=== PATIENT | male | born 1955 | race Caucasian/White ===

== ENCOUNTER → 2024-12-12 | Outpatient (CLI) | payer MEDICARE ==
[2024-12-12 10:57] VITALS: BP 184/118; PULSE 95; RESP 17; TEMP 97.4
--- NOTE | 2024-12-12 15:30 | P.PAINPG ---
PQRS Measure Charge Sheet Comment: HISTORY OF PRESENT ILLNESS: A 68 yr old male as a referral from [facility] presents today w severe and chronic LBP > 2 yrs secondary to radiculopathy, spondylosis and facet arthropathy without myelopathy for evaluation. Pt states pain level is provoked at 7 /10 in intensity, constant, localized in the lumbar spine, predominantly axial, achy in character w occasional shooting pain towards the BL knees and toes. Pain is provoked by climbing stairs. Pain is alleviated by PT x 2 wks which provoked pain in mid Nov 2024, physician guided home stretches 4-5 times weekly since Nov 2024, heat, ice, medications, topical repositioning and rest . Oswestry axial pain score at 34. 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 Fa- CRF All: See list Meds: See list incl [place] 7.5/[address] Bynum, Kimi, Tyl, Diclofenac Gel REVIEW OF ORGAN SYSTEMS: CONSTITUTIONAL: No fevers or chills. No recent weight loss. NEUROLOGICAL: + numbness and tingling along the distal extremities. No seizure disorders or headaches. MUSCULOSKELETAL: + pain PSYCHIATRIC: Denies current depression or suicidal thoughts. Physical Examinations : Constitutional : Cooperative , not in acute distress . Neurologic : Cranial nerve II to XII intact. No focal neurological deficits. Psychiatric : alert & oriented x 3. Matching mood & appropriate affect. Judgment & insight intact. Musculoskeletal : Cervical Spine Motor strength in the deltoid and biceps: Normal right side. Normal Left side Motor strength biceps and the wrist extensors: Normal right side . Normal left side Motor strength in the triceps muscle: Normal right side. Normal left side Deep tendon reflexes: Normal at the biceps. Normal at Brachioradialis. Normal at triceps Vertebral body tenderness to deep palpation over Cervical facet loading test: positive bilaterally Spurling test: positive bilaterally Neck distraction test: positive bilaterally Doe sign: positive bilaterally Lumbar spine Motor strength lower extremities ,thigh and legs 5/5 Right side , 5/5 Left side Deep tendon reflexes : Normal Knee Jerk. Normal Ankle Jerk Vertebral body tenderness over L4 Sosa Test positive BL L4-L5 Lumbar facet Loading Test: positive R ight / positive Left Range of motion of the lumbar spine Flexion 30 degrees, extension 10 degrees Straight Leg Raise test: Left/ Right positive at degrees Anay test: positive right / positive left. Severe tenderness over the Sacroiliac joint on the Right / Left sides Gaenslen test: positive bilaterally Seated flexion test: positive bilaterally. Sacral spine : Severe tenderness over the Sacroiliac joint: right side / left side Range of motion: Flexion of the lumbar spine <60 degrees Range of motion: Extension of the lumbar spine <20 degrees Gaenslen's Test positive Anay test: positive right side / left side Thigh Thrust Test Sacral Thrust Test Imaging: MRI noncontrast of the lumbar spine from 10/24/2024 reviewed Assessment/ Plan : L4-L5 radiculopathy Recommendation of NATO L4-L5 #1. Risks, benefits of procedure discussed and patient verbalized understanding. Admits to anti- coagulant use or medical history of diabetes. Protocol for discontinuation/ continuation of medications blair procedure discussed. All questions answered. I have spent greater than 30 minutes on patient care today. Dr Dodd was available by phone for the evaluation of this patient. The time was used to review the medical records including relevant urine studies and Prescription history (MAPs), review of the available imaging, evaluation and examination of the patient, coordination of care with the medical staff and if applicable referring physicians, as well as creation of the medical record - Pain Location Lower Back Non-Pharmacological Interventions: Heat, Ice Pharmacological Interventions: Medication, Topical Medication PQRS Narrative: Smoking Status Former smoker Home Medications: Ambulatory Orders Aspirin EC [Ecotrin] 81 mg PO DAILY 08/23/14 Chlorthalidone 12.5 mg PO HS 08/23/14 FLUoxetine HCL [Fluoxetine HCl] 20 mg PO HS 08/23/14 HYDROcodone/APAP 7.5-325MG [[place] 7.5-325] 1 each PO DIRECTED PRN 08/23/14 Labetalol HCl [Trandate] 200 mg PO BID 08/23/14 Zolpidem [Ambien] 5 mg PO HS PRN 08/23/14 hydrALAZINE HCL [Apresoline] 100 mg PO BID 08/23/14 lisinopriL [Prinivil] 20 mg PO BID 08/23/14 diazePAM [Valium] 5 mg PO DAILY 1 Days #2 tab 12/12/24 Controlled Substance Measures - Controlled Substance Measures Is patient prescribed a controlled substance at discharge?: Yes When asked, does pt state using other controlled substances?: Yes If prescribed controlled substance>3 days was MAPS reviewed?: Prescribed <3 Days
== END ==
LOC: PNWHC3 10:16
PROVIDERS: ATTEND Specialist
DX: M54.16 Radiculopathy, lumbar region (principal); Z87.891 Personal history of nicotine dependence
CPT/HCPCS: 99212

== ENCOUNTER 2024-12-27 06:19 | Day surgery (SDC) | payer MEDICARE ==
[2024-12-25 14:24] VITALS: BMI 28.0
[2024-12-27] MEDS ORDERED: LACTATED RINGERS 1,000 ML IV SCH (06:43)
[2024-12-27 06:55] VITALS: TEMP 97.5
[2024-12-27 07:01] LABS: Glucose,Whole Blood 141 mg/dL (70-110)
[2024-12-27] MEDS ORDERED: methylPREDNISolone ACETATE 80 MG/ML 1 ML VIAL ONE (07:44)
[2024-12-27] MEDS ORDERED: IOPAMIDOL M300 15ML VIAL ONE (07:44)
--- NOTE | 2024-12-27 08:11 | P.PCN ---
Description of Procedure: PREOPERATIVE DIAGNOSIS: 1- Lumbar Degenerative Disc Diseases 2-Lumbar spondylosis with Facet arthropathy without myelopathy. 3-lumbar spinal stenosis POSTOPERATIVE DIAGNOSIS: 1-lumbar degenerative disc disease. 2-lumbar spondylosis with facet arthropathy without myelopathy. 3-lumbar spinal stenosis. PROCEDURE Injection of radio contrast material into L4-5 interspace, interpretation of epidurogram, injection of steroid at L4- 5 epidural space under fluoroscopic guidance. ANESTHESIA: Lidocaine 1% subcutaneously. In OR continuous pulse ox, EKG, blood pressure and verbal communication was maintained with the patient. EBL: Minimal PROCEDURE INDICATION: Before the procedure were discussed with the patient detailed procedure, alternatives, complications including infection, bleeding, nerve damage, paralysis all of which could be permanent. Patient understands and all questions were answered. PROCEDURE DESCRIPTION : After getting consent, patient in OR in prone position. Back was prepped with chlorhexidine and draped in sterile fashion. After injecting 10 mL of 1% lidocaine subcutaneously, a 20-gauge Tuohy needle was introduced at L4 5 interspace with loss of resistance technique using a syringe filled with air. Negative CSF, negative blood, negative paresthesia. Needle position was confirmed with AP and lateral view of the fluoroscope. After repeat negative aspiration 2 mL of Omnipaque 200 water soluble contrast was injected. Contrast was noted in the epidural space. No contrast was noted into intrathecal or intravascular space. After repeat negative aspiration 6 mL solution was injected intermittently which consists of 5 mL of preservative-free normal saline mixed with 1 mL of 80 mg Depo-Medrol. Needle was withdrawn intact. Skin was cleansed and Band-Aids was applied. DISPOSITION / PLANS: The patient tolerated the procedure well. No complication. The patient was placed in a supine position and transferred to the recovery area in a stable condition for observation. There was no evidence of lower extremity motor or sensory deficit after the procedure. Patient was discharged from the recovery room after meeting discharge criteria. Home discharge instructions were given to the patient by the staff. The patient was reexamined prior to discharge. The patient will schedule a follow up in the clinic in 2-4 weeks.
[2024-12-27 08:26] VITALS: BP 127/78; PULSE 75; RESP 18
--- NOTE | 2024-12-27 09:32 | FL ---
EXAMINATION TYPE: FL guided pain mgmt statistic Intraoperative/procedural fluoroscopic services were provided. CLINICAL INDICATION:Male, 69 years old with history of LESI; , PHH FINDINGS: Fluoroscopic images demonstrating lumbar epidural steroid injection. No radiographic evidence for com plication. Total fluoroscopy time is 9.9 seconds. DAP: [id number] mGym2 Please see the operative/procedural note for further details. [facility], , 12/27/2024 9:30 AM
== END 2024-12-27 08:42 | disposition home or self-care (01) ==
LOC: ORPAIN 06:19
PROVIDERS: ATTEND Pain Medicine Interventional Pain Medicine
DX: M51.369 Other intervertebral disc degeneration, lumbar region without mention of lumbar back pain or lower extremity pain (principal); M47.816 Spondylosis without myelopathy or radiculopathy, lumbar region; M48.061 Spinal stenosis, lumbar region without neurogenic claudication
CPT/HCPCS: 62323; Q9967; J1010

== ENCOUNTER → 2025-01-24 | Outpatient (CLI) | payer MEDICARE ==
[2025-01-24 10:10] VITALS: BP 164/106; PULSE 98; RESP 20; TEMP 97.9
--- NOTE | 2025-01-24 15:40 | P.PAINPG ---
Objective - Vital Signs Vital signs: Vital Signs Temp 97.9 F 01/24/25 10:04 Pulse 98 01/24/25 10:04 Resp 20 01/24/25 10:04 BP 164/106 01/24/25 10:04 Pulse Ox 97 01/24/25 10:04 FiO2 Intake & Output 01/23/25 01/24/25 01/24/25 18:59 06:59 18:59 Weight 88.451 kg PQRS Measure Charge Sheet Mode of Arrival: Ambulatory Comment: HISTORY OF PRESENT ILLNESS: A 68 yr old male presents today w severe and chronic LBP > 2 yrs secondary to radiculopathy, spondylosis and facet arthropathy without myelopathy for evaluation s/p NATO L4-L5 #1. Pt states he experienced 70 % pain relief x 3-4 wks s/p procedure. Pt states pain level is provoked at 4-6 /10 in intensity, intermittent, localized in the lumbar spine, predominantly axial, achy in character without shooting pain. Pain is provoked by climbing stairs. Pain is alleviated by PT x 2 wks which provoked pain in mid Nov 2024, physician guided home stretches 4-5 times weekly since Nov 2024, heat, ice, medications, topical repositioning and rest . Oswestry axial pain score at 34. Interventional procedures include InterStim Placement (2021), R ESTEFANIA (2020), Cervical Disectomy (2008) w Bone Graft (1997), NATO L4-L5 x1 Medications include [place] 7.5/[address] B[address]um, Lyrica, Tyl, Diclofenac Gel REVIEW OF ORGAN SYSTEMS: CONSTITUTIONAL: No fevers or chills. No recent weight loss. NEUROLOGICAL: + numbness and tingling along the distal extremities. No seizure disorders or headaches. MUSCULOSKELETAL: + pain PSYCHIATRIC: Denies current depression or suicidal thoughts. Physical Examinations : Constitutional : Cooperative , not in acute distress . Neurologic : Cranial nerve II to XII intact. No focal neurological deficits. Psychiatric : alert & oriented x 3. Matching mood & appropriate affect. Judgment & insight intact. Musculoskeletal : Cervical Spine Motor strength in the deltoid and biceps: Normal right side. Normal Left side Motor strength biceps and the wrist extensors: Normal right side . Normal left side Motor strength in the triceps muscle: Normal right side. Normal left side Deep tendon reflexes: Normal at the b iceps. Normal at Brachioradialis. Normal at triceps Vertebral body tenderness to deep palpation over Cervical facet loading test: positive bilaterally Spurling test: positive bilaterally Neck distraction test: positive bilaterally Doe sign: positive bilaterally Lumbar spine Motor strength lower extremities ,thigh and legs 5/5 Right side , 5/5 Left side Deep tendon reflexes : Normal Knee Jerk. Normal Ankle Jerk Vertebral body tenderness over L4 Sosa Test positive BL L4-L5 Lumbar facet Loading Test: positive Right / positive Left Range of motion of the lumbar spine Flexion 30 degrees, extension 10 degrees Straight Leg Raise test: Left/ Right positive at degrees Anay test: positive right / positive left. Severe tenderness over the Sacroiliac joint on the Right / Left sides Gaenslen test: positive bilaterally Seated flexion test: positive bilaterally. Sacral spine : Severe tenderness over the Sacroiliac joint: right side / left side Range of motion: Flexion of the lumbar spine <60 degrees Range of motion: Extension of the lumbar spine <20 degrees Gaenslen's Test positive Anay test: positive right side / left side Thigh Thrust Test Sacral Thrust Test Imaging: MRI non contrast of the lumbar spine from 10/24/2024 reviewed Assessment/ Plan : L4-L5 radiculopathy Recommendation of NATO L4-L5 #2. Risks, benefits of procedure discussed and patient verbalized understanding. Admits to anti- coagulant use or medical history of diabetes. Protocol for discontinuation/ continuation of medications blair procedure discussed. All questions answered. I have spent greater than 30 minutes on patient care today. Dr Dodd was available by phone for the evaluation of this patient. The time was used to review the medical records including relevant urine studies and Prescription history (MAPs), review of the available imaging, evaluation and examination of the patient, coordination of care with the medical staff and if applicable referring physicians, as well as creation of the medical record - Pain Location Lower Back Non-Pharmacological Interventions: Inactivity Pharmacological Interventions: Epidural PQRS Narrative: Smoking Status Former smoker Blood Pressure 164/106 Pain Intensity [Lower Back] 5 Scale Used Numeric (1 - 10) Hx Alcohol Use (MH) No Home Medications: Ambulatory Orders HYDROcodone/APAP 7.5-325MG [[place] 7.5-325] 1 each PO BID 08/23/14 Acetaminophen [Tylenol Extra Strength] 500 mg PO DIRECTED PRN 12/25/24 Desvenlafaxine Succinate [Pristiq ER] 25 mg PO DAILY 12/25/24 Diclofenac Sodium [Voltaren] 75 mg PO BID 12/25/24 Evolocumab [Repatha Sureclick] 140 mg SQ Q14D 12/25/24 Losartan Potassium 100 mg PO DAILY 12/25/24 Pantoprazole [Protonix] 40 mg PO DAILY 12/25/24 Potassium Chloride ER [K-Dur 20] 20 meq PO BID 12/25/24 amLODIPine [Norvasc] 10 mg PO DAILY 12/25/24 cloNIDine HCL 0.2 mg PO BID 12/25/24 metFORMIN HCL 500 mg PO BID 12/25/24 diazePAM [Valium] 5 mg PO DAILY 1 Days #2 tab 01/24/25 Controlled Substance Measures - Controlled Substance Measures Is patient prescribed a controlled substance at discharge?: No
== END ==
LOC: PNWHC3 09:46
PROVIDERS: ATTEND Specialist
DX: M47.26 Other spondylosis with radiculopathy, lumbar region (principal); Z87.891 Personal history of nicotine dependence
CPT/HCPCS: 99211